=== PATIENT | male | born 1980 | race Caucasian/White ===

== ENCOUNTER 2018-08-03 17:21 | Emergency (ER) | payer MEDICAID, SELFPAY ==
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
[2018-08-03 17:44] VITALS: BP 137/93; PULSE 89; RESP 18; TEMP 36.5; O2SAT 98
== END 2018-08-03 19:28 ==
PROVIDERS: Emergency Provider Student in an Organized Health Care Education/Training Program
DX: S09.90XA Unspecified injury of head, initial encounter (principal); X58.XXXA Exposure to other specified factors, initial encounter; Z53.21 Procedure and treatment not carried out due to patient leaving prior to being seen by health care provider

== ENCOUNTER 2019-08-28 02:14 | Outpatient (CLI) | payer MEDICAID, SELFPAY | END 2019-08-28 02:34 | PROVIDERS: PCP Nurse Practitioner Family; Visit Provider Nurse Practitioner Family | DX: Z79.899 Other long term (current) drug therapy (principal) ==